=== PATIENT | male | born 1995 ===

== ENCOUNTER 2021-05-31 16:46 | Emergency (ER) | payer BC, SELFPAY ==
[2021-05-31 16:47] VITALS: BP 128/65; PULSE 63; RESP 18; TEMP 36.4; O2SAT 98
--- NOTE | 2021-05-31 17:23 | ED.GENADULT ---
HPI - General Adult General Chief complaint: Abdominal Pain Stated complaint: I think I have a hernia Time Seen by Provider: 05/31/21 16:57 Source: patient and RN notes reviewed Mode of arrival: ambulatory Limitations: no limitations History of Present Illness HPI narrative: This is a 25 year old male who presents for evaluation of right groin lump. He notices a painful knot to his right groin 5 hours ago. He has pain with walking. He has not taken anything for pain. He denies associated nausea, vomiting, fever, dysuria, wound, penile discharge. He was worried that he may have a hernia. He also reports normal bowel movement. Related Data Allergies Allergy/AdvReac Type Severity Reaction Status Date / Time No Known Allergies Allergy Verified 05/31/21 16:54 Review of Systems Review of Systems: All systems reviewed & are unremarkable except as noted in HPI and below PMFSH Past Medical History Medical History (Updated 06/01/21 @ 00:00 by Maddi Mares) ADONIS (generalized anxiety disorder) Testicular torsion Social History Social History Smoking status: Never smoker Alcohol intake: never Substance use: current Substance use type: marijuana Exam Const: General: healthy appearing, no acute distress and alert Nutritional Appearance: thin Orientation/consciousness: patient oriented x3 Other: tall Eyes: EOM: EOMs intact bilaterally Resp: Effort & Inspection: normal respiratory effort GI: GI Palp: Yes Soft to palpation, No Tenderness to palpation present (GI) and No Guarding due to palpation present (GI) Auscultation: normal bowel sounds Other: right nodule at right groin approximately 2 cm, firm, nonmobile , tender, no fluctuance, no erythema : Penis: Yes normal penis and Yes circumcised Scrotum: scrotum normal Skin: General skin exam: normal color Rashes: no rashes Neuro: General: patient oriented x3, moves all extremities and CN's II-XI intact bilaterally Gait exam (Neuro): Normal gait present Extrem: General: normal to inspection Psych: Mental Status: mental status grossly normal Affect: normal affect Course Reevaluation(s) Reevaluation #1: I discussed with patient that knot seems to be lymph node. He denies any source of infection. I discussed he will be started on antibiotics if lymph node does not resolve he will need to follow up with primary care physician. Date: 05/31/21 Time: 17:27 Vital Signs Vital signs: Vital Signs Temperature 97.5 F L 05/31/21 16:47 Pulse Rate 63 05/31/21 16:47 Respiratory Rate 18 05/31/21 16:47 Blood Pressure 128/65 05/31/21 16:47 Pulse Oximetry 98 05/31/21 16:47 Temperature 97.5 F L 05/31/21 16:47 Pulse Rate 80 05/31/21 17:39 Respiratory Rate 20 05/31/21 17:39 Blood Pressure 115/80 05/31/21 17:39 Pulse Oximetry 100 05/31/21 17:39 Medical Decision Making Vital Signs Vital Signs: Vital Signs Temperature 97.5 F L 05/31/21 16:47 Pulse Rate 63 05/31/21 16:47 Respiratory Rate 18 05/31/21 16:47 Blood Pressure 128/65 05/31/21 16:47 Pulse Oximetry 98 05/31/21 16:47 Temperature 97.5 F L 05/31/21 16:47 Pulse Rate 80 05/31/21 17:39 Respiratory Rate 20 05/31/21 17:39 Blood Pressure 115/80 05/31/21 17:39 Pulse Oximetry 100 05/31/21 17:39 Discharge Plan Discharge Clinical Impression: Lymphadenopathy, inguinal Patient Disposition: Home, Self-Care Condition: Stable Instructions: Antibiotic Form, Lymphadenopathy (ED) Additional Instructions: Today you were found to have a lymph node. This is usually due to your body fighting an infection. Take antibiotics as prescribed. If your lymph node does not resolve or you notice more lymph nodes you will need to follow up with your primary care physician for further work up . Prescriptions: New cephalexin 500 mg capsule 500 mg PO Q12H 7 Days Qty: 14 RF:
[2021-05-31 17:39] VITALS: BP 115/80; PULSE 80; RESP 20; O2SAT 100
[2021-05-31] MEDS: IBUPROFEN 600 MG TABLET PO (17:39)
[2021-05-31] MEDS: CEPHALEXIN 500 MG CAPSULE PO (17:39)
== END 2021-05-31 17:40 | disposition home or self-care (01) ==
PROVIDERS: Emergency Provider General Practice
DX: R59.1 Generalized enlarged lymph nodes (principal); F41.1 Generalized anxiety disorder
CPT/HCPCS: 99283; A9270